=== PATIENT | male | born 1980 | race Caucasian/White ===

== ENCOUNTER 2018-08-01 15:37 | Emergency (ER) | payer OTHER ==
[~2018-08-01] VITALS: Ht 170.2 cm; Wt 72.6 kg
[~2018-08-01 15:37] MED LIST: HYDROCODONE-AP1 EAC6 PO; PENICILLIN V P500 MG PO
[2018-08-01] MEDS ORDERED: KEFLEX500 M1 PO (16:51)
[2018-08-01] MEDS ORDERED: NAPROSYN500 MG PO (16:51)
[2018-08-01 17:04] VITALS: BP 131/72
== END 2018-08-01 17:04 | disposition home or self-care (01) ==
LOC: M.ERS 15:37
DX: L02.415 Cutaneous abscess of right lower limb (principal); L02.411 Cutaneous abscess of right axilla; F17.200 Nicotine dependence, unspecified, uncomplicated

== ENCOUNTER 2020-07-25 06:51 | Emergency (ER) | payer OTHER ==
[~2020-07-25] VITALS: Ht 170.2 cm; Wt 74.8 kg
[~2020-07-25 06:51] MED LIST changes: +KEFLEX500 M1 PO; +NAPROSYN500 MG PO
[2020-07-25] MEDS ORDERED: BACTRIM DS TAB1 EACH PO (07:26)
[2020-07-25] MEDS ORDERED: CEPHALEXIN250 MG PO (07:26)
[2020-07-25] MEDS ORDERED: ZOFRAN ODT4 MG PO (07:41)
[2020-07-25 07:55] VITALS: BP 139/70
== END 2020-07-25 07:56 | disposition home or self-care (01) ==
LOC: M.ERS 06:51
DX: L03.211 Cellulitis of face (principal); R23.8 Other skin changes; R11.2 Nausea with vomiting, unspecified; R19.7 Diarrhea, unspecified